=== PATIENT | female | born 1980 | race Caucasian/White ===

== ENCOUNTER 2018-08-18 11:39 | Outpatient (REF) | payer BC, SELFPAY ==
--- NOTE | 2018-08-18 11:00 | PAPFT_PTH ---
PATIENT: Stefanie Jaramillo LOC: [facility] U#:[id number] AGE/SX: 38/F ROOM: RE08/18/[address]: GEGE Barajas : 1980 BED: DIS: 08/18/2018 SPEC #: [id number] RECD: 08/18/18 12:29 STATUS: IRENA REQ #: [id number] BALTAZAR: 08/18/18 11:[address]: Elisabeth Bhakta DEPT: [facility] Cytology RECD BY: Adrienne Hi ENTERED: 08/18/18 12:29 SP TYPE: PAPFT PALMA DR: Unknown,Unknown Tissues: 1 - CX/ENDOCX FOR PAP SMEARS Procedures: PAP THIN PREP/UVM Screening HPV DNA PROBE Comments: [id number]
== END 2018-08-18 11:59 ==
LOC: LBN 11:39
PROVIDERS: Visit Provider Nurse Practitioner Family
DX: Z12.4 Encounter for screening for malignant neoplasm of cervix (principal); Z11.51 Encounter for screening for human papillomavirus (HPV)
CPT/HCPCS: 88142; 87624

== ENCOUNTER 2018-08-27 12:18 | Outpatient (CLI) | payer BC, SELFPAY ==
--- NOTE | 2018-08-27 17:00 | DI.MAMMO_ITS ---
SYMPTOM/DIAGNOSIS: SCREENING, BASELINE MAMMOGRAMS: Mammograms were interpreted according to the usual protocol including computer analysis with CAD system, tomosynthesis and C view imaging. There are no prior comparison exams. The breasts are composed of scattered fibroglandular densities. No suspicious masses or suspicious microcalcifications are seen. IMPRESSION: Category 1B, negative mammogram. Yearly screening mammography is recommended. [facility] ASSESSMENT OF FINDINGS: Negative. Category 1. Patient will receive a letter notifying them of these results. BI-RADS category B. There are scattered areas of fibroglandular density.
== END 2018-08-27 12:38 ==
PROVIDERS: PCP Physician Assistant Medical; Visit Provider Nurse Practitioner Family
DX: Z12.31 Encounter for screening mammogram for malignant neoplasm of breast (principal)
CPT/HCPCS: 77063; 77067

== ENCOUNTER 2022-08-24 15:21 | Outpatient (REF) | payer BC, SELFPAY ==
[2022-08-24 19:13] LABS: HCT 41.2 % (36.0-46.0); HGB 13.7 g/dL (11.2-15.7); MCH 29.5 pg (27.0-33.0); MCHC 33.3 % (32.0-36.0); MCV 89 fL (80-95); MPV 9.9 fL (8.0-11.0); Platelet Count 267 10^3/uL (130-400); RBC 4.65 10^6/uL (3.93-5.22); RDW 12.5 % (11.7-14.6); RDW-SD 40.9 fL; WBC 7.52 10^3/uL (4.4-10.8)
[2022-08-24 19:41] LABS: BUN 16 mg/dL (7-18); CREATININE 0.8 mg/dL (0.55-1.02); Calcium 9.2 mg/dL (8.5-10.1); Calculated LDL 123 mg/dL (<100); Chloride 104 mmol/L (98-107); Cholesterol 233 mg/dL (<200); Estimated GFR 93.12 (mL/min/1.73m2); Ferritin 17 ng/mL (8-252); Glucose 97 mg/dL (74-106); HDL Cholesterol 94 mg/dL (40-60); Magnesium 2.1 mg/dL (1.8-2.4); Sodium 138 mmol/L (136-145); Triglyceride 81 mg/dL (<150)
== END 2022-08-24 15:22 | disposition home or self-care (01) ==
LOC: NCHCN 15:21
PROVIDERS: PCP Physician Assistant Medical; Visit Provider Nurse Practitioner Family
DX: G25.81 Restless legs syndrome; E03.9 Hypothyroidism, unspecified; E78.89 Other lipoprotein metabolism disorders
CPT/HCPCS: 80048; 80061; 85027; 82728; 83735

== ENCOUNTER 2022-11-28 01:27 | Outpatient (CLI) | payer BC, SELFPAY ==
--- NOTE | 2022-11-28 16:40 | DI.MAMMO_ITS ---
Exam(s) MAMMO SCREENING EXAM: MAMMO SCREENING CLINICAL HISTORY: SCREENING, Z12.39. TECHNIQUE: Bilateral full field digital CC and MLO mammographic images were obtained with 3D tomosyn thesis and utilizing computer aided detection (CAD). COMPARISON: Prior baseline mammogram of 2019 was reviewed. FINDINGS: There has been no significant change in the appearance and distribution of the fibroglandular tissue. Right-side skin mole again noted. There are no new spiculated masses nor malignant appearing microcalcification groups. There is no significant architectural distortion nor skin thickening-retraction. IMPRESSION: No radiographic evidence of malignancy. BI-RADS Category 1 - Negative Breast Density - Category B - Scattered areas of fibroglandular density Breast density Category C or D implies that the patient has dense breast tissue. Dense breast tissue can make it harder to find cancer on a mammogram. Dense breast tissue is also associated with an incr eased risk of breast cancer. This information about the result of the mammogram report was provided to the patient to raise their awareness. Use this report when you speak with the patient about their risks for breast cancer, which includes their family history. At that time, you may recommend additional screening tests (Ultrasoun d or MRI) as these tests may add significant information. A negative radiographic report should not delay biopsy if a dominant or clinically suspicious mass is present. Up to ten percent of cancers are not identified on mammography. A negative report may reinforce clinical impression. Adenosis and dense breasts may obscure an underlying neoplasm. False positive reports average 6 to 10%. Patient will receive a letter notifying them of these results.
== END 2022-11-28 01:47 ==
LOC: DI 01:27
PROVIDERS: PCP Physician Assistant Medical; Visit Provider Nurse Practitioner Family
DX: Z12.31 Encounter for screening mammogram for malignant neoplasm of breast (principal)
CPT/HCPCS: 77063; 77067

== ENCOUNTER 2023-08-02 16:43 | Outpatient (REF) | payer BC, SELFPAY ==
[2023-08-02 19:03] LABS: Abs Immature Grans 0.02 10^3/uL (0.0-0.06); Absolute Basophil Count 0.04 10^3/uL (0.0-0.2); Absolute Eosinophil Count 0.08 10^3/uL (0.0-0.7); Absolute Lymphocyte Count 1.82 10^3/uL (1.2-3.4); Absolute Neutrophil Count 4.84 10^3/uL (1.2-6.7); Basophils % 0.5; Eosinophils % 1.1; HCT 39.7 % (36.0-46.0); HGB 13.3 g/dL (11.2-15.7); Immature Grans % 0.3; Lymphocytes % 24.6; MCH 29.6 pg (27.0-33.0); MCHC 33.5 % (32.0-36.0); MCV 88 fL (80-95); MPV 10.1 fL (8.0-11.0); Monocytes % 8.1; Neutrophils % 65.4; Platelet Count 267 10^3/uL (130-400); RDW 12.4 % (11.7-14.6); RDW-SD 40.1 fL
[2023-08-02 19:36] LABS: Calculated LDL 118 mg/dL (<100); Cholesterol 213 mg/dL (<200); FREE T4 0.98 ng/dL (0.76-1.46); Ferritin 19 ng/mL (8-252); HDL Cholesterol 86 mg/dL (40-60); TSH 0.62 uIU/mL (0.36-3.74); Triglyceride 48 mg/dL (<150)
== END 2023-08-02 16:44 | disposition home or self-care (01) ==
LOC: NCHCN 16:43
PROVIDERS: PCP Physician Assistant Medical; Visit Provider Nurse Practitioner Family
DX: R63.5 Abnormal weight gain (principal); R77.8 Other specified abnormalities of plasma proteins
CPT/HCPCS: 80061; 82728; 84439; 84443; 85025

== ENCOUNTER 2023-12-17 15:05 | Outpatient (REF) | payer BC, SELFPAY ==
--- NOTE | 2023-12-17 14:20 | PAPFT_PTH ---
PATIENT: Stefanie Jaramillo LOC: [facility] U#:[id number] AGE/SX: 43/F ROOM: RE12/17/[address]: Brenda Keane NP : 1980 BED: DIS: 12/17/2023 SPEC #: [id number] RECD: 12/17/23 18:11 STATUS: IRENA REQ #: [id number] BALTAZAR: 12/17/23 14:[address]: Brenda Keane NP DEPT: [facility] Cytology RECD BY: Adrienne Hi ENTERED: 12/17/23 18:11 SP TYPE: PAPFT OTHR DR: Shantell Montgomery Tissues: 1 - CX/ENDOCX FOR PAP SMEARS Procedures: PAP THIN PREP/UVM Screening HPV DNA PROBE Comments: [id number]
== END 2023-12-17 15:06 | disposition home or self-care (01) ==
LOC: LBN 15:05
PROVIDERS: PCP Physician Assistant Medical; Visit Provider Nurse Practitioner Women's Health
DX: Z11.51 Encounter for screening for human papillomavirus (HPV) (principal); Z01.419 Encounter for gynecological examination (general) (routine) without abnormal findings
CPT/HCPCS: 88142; 87624

== ENCOUNTER 2023-12-20 15:04 | Emergency (ER) | payer OTHER, SELFPAY ==
[2023-12-20 15:12] VITALS: BP 128/83; PULSE 88; RESP 14; TEMP 36.3; O2SAT 98
--- NOTE | 2023-12-20 16:06 | W.ED.GENAD ---
Discharge Plan Discharge Details Chief Complaint: Orthopedic Primary Care Provider: Shantell Montgomery ED Provider: Linn Douglas Home Meds and New Rx's Prescriptions: No Action Loratadine-D 1 EACH tablet extended release 24 hr 1 tab-cap PO DAILY HPI General Date/Time Provider Initiated Documentation: 12/20/23 15:46. HPI Narrative: Stefanie is a 43-year-old female who presents to the emergency department for evaluation of left shoulder pain. She reports that 2 days ago she fell into a door jam, hitting her left shoulder. She denies head injury, neck pain/back pain, chest pain, distal numbness/tingling, distal weakness. Pain is elicited with lifting her arm, she is most comfortable with her arm down by her side. No previous injury to this shoulder. Denies significant past medical history. She does have a primary care provider she can follow-up with. Related Data Home Medications Medication Instructions Recorded Confirmed loratadine-pseudoephedrine ER 10 1 tab-cap PO DAILY 01/12/15 12/17/23 mg-240 mg tablet,extended [id number] (Loratadine-D) Allergies Allergy/AdvReac Type Severity Reaction Status Date / Time No Known Allergies Allergy Verified 12/20/23 15:15 General Stated Complaint: Orthopedic KATHY: 4 Review of Systems Narrative: see HPI Exam Const General: cooperative, healthy appearing, comfortable, no acute distress and well developed Nutritional Appearance: average body habitus Resp Effort & Inspection: normal respiratory effort and able to speak in complete sentences Extrem Left upper extremity: normal to inspection, normal capillary refill, no joint enlargement and shoulder/upper arm Details: abnormal ROM Details: pain with active ROM Details: in extension; no tenderness, no swelling, no abrasions, no lacerations, no ecchymosis, no crepitus, no foreign bodies, no penetrating wound, no deformity and no unsual warmth Course Vital Signs Vital signs: Vital Signs Temperature 36.3 C L 12/20/23 15:12 Pulse 88 12/20/23 15:12 Respiratory Rate 14 12/20/23 15:12 Blood Pressure 128/83 12/20/23 15:12 Pulse Oximetry 98 12/20/23 15:12 Temperature 36.3 C L 12/20/23 15:12 Temperature Source Skin 05/03/24 15:12 Pulse 88 12/20/23 15:12 Respiratory Rate 14 12/20/23 15:12 Respiratory Effort Normal 12/20/23 15:54 Blood Pressure 128/83 12/20/23 15:12 Blood Pressure Position Sitting 12/20/23 15:12 Pulse Oximetry 98 12/20/23 15:12 Oxygen Delivery Method Room Air 12/20/23 15:12 Oxygen Flow Rate 0 12/20/23 15:12 Pain Level 5 12/20/23 15:12 Medical Decision Making Stefanie is a 43-year-old female who presents to the emergency department for evaluation of left shoulder pain. She reports that 2 days ago she fell into a door jam, hitting her left shoulder. She denies head injury, neck pain/back pain, chest pain, distal numbness/tingling, distal weakness. Pain is elicited with lifting her arm, she is most comfortable with her arm down by her side. No previous injury to this shoulder. Denies significant past medical history. She does have a primary care provider she can follow-up with. Physical exam very reassuring. No obvious deformities, point tenderness, ecchymosis, or skin tears/lesions. She does have decreased range of motion with Apley scratch test. Normal empty can test. 5 out of 5 muscle strength to upper extremity. + CMS to hand and arm. No elbow or hand pain. DDx includes was not limited to: Soft tissue injury, AC joint separation, clavicle fracture or dislocation of shoulder less likely. I independently interpreted the following tests: Quality:SDOH Health Related Social Needs: No Data to Display PFSH All Active Problems Metrorrhagia (Acute) Surgical History S/P excision of lipoma Family History Mother Diabetes Father Essential hypertension Son No problems noted. Son No problems noted. Son No problems noted. Maternal Uncle , BRAIN TUMOR No problems noted. Maternal Uncle , BRAIN TUMOR No problems noted. Social History (Updated 12/17/23 @ 14:46 by Brenda Keane NP) Smoking/Tobacco Use Status: Never Second Hand Exposure: No Smoking risk assessment performed?: Yes Alcohol Intake: current Drug use: Never Substance use type: does not use Housing: house current occupation: field operations farm manager Sexually active: Yes Current gender identity: female What is your relationship status?: Panel score (0-1 are the most socially isolated patients): 1 What type of physical activity do you participate in: regular exercise Seatbelt use: always Helmet use: Yes Drive intox or ride w/intox [employer] hazmat tanker driver: No Do you feel safe at home: Yes Do you feel safe in your relationship?: Yes Female Reproductive History Menstrual control method: other (vasectomy) History History 3 Para 3 Hx # Term Pregnancies Multiple births Hx # Pregnancies Ectopic pregnancies AB induced Hx Number of Living Children AB spontaneous
--- NOTE | 2023-12-20 16:26 | DI.RAD_ITS ---
Exam(s) XR SHOULDER LT COMPLETE 2+V EXAM: XR SHOULDER LT COMPLETE 2+V CLINICAL HISTORY: L shoulder pain s/p fall. TECHNIQUE: 2D digital imaging was performed. COMPARISON: No exams were available for comparison FINDINGS: 3 views No evidence of fracture nor dislocation nor tissue calcifications. No degenerative changes. Clavicl e appears intact. There is slight offset of the AC joint on 1 image. Correlation with site of tende rness is recommended. Incidentally noted in the peripheral field of view here is a small peripherally sclerotic bone lesion in the proximal humerus diaphysis. This is slightly lower than typically seen for a biceps tenodesi s site but correlation with any prior surgery recommended. IMPRESSION: No acute fracture. Slight widening of the AC joint on 1 image. Correlation with site of tenderness is recommended. Incidental note of a peripherally sclerotic non expansile benign-appearing bone lesion in the proxima l half of the humeral diaphysis. Not typical appearance of a biceps tenodesis site. DATA REPOSITORY: RADIATION DOSE DELIVERED:
== END 2023-12-20 17:30 | disposition home or self-care (01) ==
PROVIDERS: Emergency Provider Nurse Practitioner Family; PCP Physician Assistant Medical
DX: M25.512 Pain in left shoulder (principal)
CPT/HCPCS: 99283; 73030

== ENCOUNTER → 2024-02-03 04:37 | Outpatient (CLI) | payer BC, SELFPAY ==
--- NOTE | 2024-02-03 15:45 | DI.MAMMO_ITS ---
Exam(s) MAMMO SCREENING EXAM: MAMMO SCREENING CLINICAL HISTORY: screening. TECHNIQUE: Bilateral full field digital CC and MLO mammographic images were obtained with 3D tomosyn thesis and utilizing computer aided detection (CAD). COMPARISON: Prior mammograms were reviewed. FINDINGS: There has been no significant change in the appearance and distribution of the fibroglandular tissue. There are no new spiculated masses nor malignant appearing microcalcification groups. There is no significant architectural distortion nor skin thickening-retraction. Skin mole again noted medially. IMPRESSION: No radiographic evidence of malignancy. BI-RADS Category 2 - Benign Findings Breast Density - Category B - Scattered areas of fibroglandular density Breast density Category C or D implies that the patient has dense breast tissue. Dense breast tissue can make it harder to find cancer on a mammogram. Dense breast tissue is also associated with an incr eased risk of breast cancer. This information about the result of the mammogram report was provided to the patient to raise their awareness. Use this report when you speak with the patient about their risks for breast cancer, which includes their family history. At that time, you may recommend additional screening tests (Ultrasoun d or MRI) as these tests may add significant information. A negative radiographic report should not delay biopsy if a dominant or clinically suspicious mass is present. Up to ten percent of cancers are not identified on mammography. A negative report may reinforce clinical impression. Adenosis and dense breasts may obscure an underlying neoplasm. False positive reports average 6 to 10%. Patient will receive a letter notifying them of these results.
== END ==
PROVIDERS: PCP Nurse Practitioner Family; Visit Provider Nurse Practitioner Women's Health
DX: Z12.31 Encounter for screening mammogram for malignant neoplasm of breast (principal)
CPT/HCPCS: 77063; 77067

== ENCOUNTER 2025-02-03 02:26 | Outpatient (CLI) | payer BC, SELFPAY ==
--- NOTE | 2025-02-03 15:00 | DI.MAMMO_ITS ---
Exam(s) MAMMO SCREENING EXAM: MAMMO SCREENING CLINICAL HISTORY: screening TECHNIQUE: Bilateral full field digital CC and MLO mammographic images were obtained with 3D tomosynthesis and utilizing computer aided detection (CAD). COMPARISON: Comparison is made with prior examinations. FINDINGS: Masses/Architectural Distortion: No suspicious masses or areas of architectural distortion are present. Microcalcifications: No suspicious pleomorphic-type are seen. Skin Thickening/Nipple Retraction: None. IMPRESSION: 1. No significant interval change with no specific features of malignancy noted. 2. Unless there is more urgent need, screening mammography is recommended, as per [place] [employer] guidelines. BI-RADS Category 1 - Negative Breast Density - Category B - There are scattered areas of fibroglandular density. Breast density Category C or D implies that the patient has dense breast tissue. Dense breast tissue can make it harder to find cancer on a mammogram. Dense breast tissue is also associated with an increased risk of breast cancer. This information about the result of the mammogram report was provided to the patient to raise their awareness. Use this report when you speak with the patient about their risks for breast cancer, which includes their family history. At that time, you may recommend additional screening tests (Ultrasound or MRI) as these tests may add significant information. A negative radiographic report should not delay biopsy if a dominant or clinically suspicious mass is present. Up to ten percent of cancers are not identified on mammography. A negative report may reinforce clinical impression. Adenosis and dense breasts may obscure an underlying neoplasm. False positive reports average 6 to 10%. Patient will receive a letter notifying them of these results.
== END 2025-02-03 02:46 ==
LOC: DI 02:26
PROVIDERS: PCP Nurse Practitioner Family; Visit Provider Nurse Practitioner Women's Health
DX: Z12.31 Encounter for screening mammogram for malignant neoplasm of breast (principal); R92.323 Mammographic fibroglandular density, bilateral breasts
CPT/HCPCS: 77063; 77067